=== PATIENT | female | born 2000 | race Caucasian/White ===

== ENCOUNTER 2023-12-01 02:30 | Emergency (ER) | payer SELFPAY ==
[~2023-12-01] VITALS: Ht 149.9 cm; Wt 65.8 kg
[2023-12-01 02:39] VITALS: BP 136/94; TEMP 97.9; O2SAT 99
[2023-12-01] MEDS ORDERED: TRAMADOL HCL 50 MG TABLET ONE (02:47)
[2023-12-01] MEDS: TRAMADOL HCL 50 MG TABLET PO ONE (02:50)
== END 2023-12-01 03:27 | disposition left against medical advice (07) ==
LOC: ER 02:33
DX: M25.511 Pain in right shoulder (principal); M25.521 Pain in right elbow; Z88.5 Allergy status to narcotic agent; W01.0XXA Fall on same level from slipping, tripping and stumbling without subsequent striking against object, initial encounter; Y93.89 Activity, other specified; Y92.89 Other specified places as the place of occurrence of the external cause; Y99.8 Other external cause status
CPT/HCPCS: 71045-TC; 73030-TC; 73080-TC